=== PATIENT | male | born 1985 | race Asian ===

== ENCOUNTER 2017-08-25 14:05 | Emergency (ER) | payer SELFPAY ==
[~2017-08-25] VITALS: Ht 172.7 cm; Wt 69.8 kg
[2017-08-25 14:12] VITALS: TEMP 39.2; Ht 172.7 cm; Wt 69.8 kg
[2017-08-25] MEDS ORDERED: CLINDAMYCIN IV 900 MG in DEXTROSE 5% 100ML 100 ML IV ONE (14:30)
[2017-08-25] MEDS ORDERED: DEXAMETHASONE INJ 10 MG in SYRINGE 0 ML IV ONE (14:30)
[2017-08-25 14:58] LABS: BASO % 0.1 %; BASO ABS # 0.02 K/uL (0-0.2); HEMATOCRIT 40.4 % (42-52); IG# 0.08 K/uL (0.00-0.02); LYMPH % 4.6 %; LYMPH ABS # 1.01 K/uL (1.2-3.4); MEAN CELL VOLUME 93.1 fL (80-100); MEAN CORPUSCULAR HEMOGLOBIN 32.3 pg (25-34); MEAN CORPUSCULAR HGB CONC 34.7 g/dl (32-36); MEAN PLATELET VOLUME 9.2 fL (7.4-10.4); MONO % 4.7 %; MONO ABS # 1.04 K/uL (0.11-0.59); NEUT % 90.2 %; NEUT ABS # 19.94 K/uL (1.4-6.5); PLATELET COUNT 232 K/uL (130-400); RED CELL DISTRIBUTION WIDTH CV 11.7 % (11.5-14.5); RED CELL DISTRIBUTION WIDTH SD 39.7 fL (36.4-46.3); WHITE BLOOD COUNT 22.09 K/uL (4.8-10.8)
[2017-08-25] MEDS ORDERED: LIDO/EPINEPHRINE/SOD BICARB 20 ML VIAL ONE (14:59)
[2017-08-25 15:15] LABS: CREATININE 0.95 mg/dl (0.60-1.40); POTASSIUM 3.8 mmol/L (3.5-5.1)
[2017-08-25] MEDS ORDERED: HYDR-5688 PO (15:49)
[2017-08-25] MEDS ORDERED: AMOX875T PO (15:49)
--- NOTE | 2017-08-25 16:08 | OPERATIVE REPORT ---
DATE OF OPERATION: 08/25/2017 PREOPERATIVE DIAGNOSIS: Left peritonsillar abscess. POSTOPERATIVE DIAGNOSIS: Left peritonsillar abscess. PROCEDURE: Incision and drainage. SURGEON: Ada Tay MD ANESTHESIA: Local. COMPLICATIONS: None. BLOOD LOSS: Less than 10 mL. HISTORY OF PRESENT ILLNESS: This is a 32-year-old male with acute onset of sore throat last Bill, rapidly progressed to a febrile illness with sign of a left peritonsillar abscess. DESCRIPTION OF PROCEDURE: The patient was placed in the semi-sitting position. The throat was sprayed with Cetacaine and then injected with 1% Xylocaine 1:100,000 strength epinephrine. The needle aspiration with an 18 gauge needle was performed in the left peritonsillar abscess, obtaining 4 mL of pus. The abscess cavity was opened using #11 blade and abscess cavity was spread opened using the hemostat and the pharynx was suctioned clean. The patient tolerated the procedure well and will be discharged with Augmentin and Lortab elixir. I attest to the content of the Intraoperative Record and any orders documented therein. Any exception s are noted below.
[2017-08-25 16:09] VITALS: BP 142/92; PULSE 120; O2SAT 95
--- NOTE | 2017-08-25 16:20 | CONSULTATION REPORT ---
DATE OF CONSULTATION: 08/25/2017 DIAGNOSIS: Left peritonsillar abscess. HISTORY OF PRESENT ILLNESS: A 32-year-old male with acute onset of sore throat since last Saturday, became febrile today with dysphagia and odynophagia and drooling and was referred from the walk-in clinic for assessment for possible left peritonsillar abscess. PAST MEDICAL HISTORY: MEDICAL PROBLEMS: None. PREVIOUS SURGERIES: None. MEDICATIONS: Include Augmentin and [place]. SOCIAL HISTORY: Nonsmoker. REVIEW OF SYSTEMS: Otherwise, negative. PHYSICAL EXAMINATION: GENERAL: WNWD male, in pain and has dysphagia and has drooling and hot potato voice. HEAD: Normocephalic. EYES: Normal. EARS: Tympanic membranes intact. NOSE: Nasal passages patent. THROAT: Oropharynx shows left soft palate swelling with uvular swelling and uvular edema and uvular shift towards the right. NECK: Bilateral anterior adenopathy. Neck is otherwise supple. HEART: RRR. LUNGS: Clear. IMPRESSION: Left peritonsillar abscess. PLAN: For incision and drainage.
--- NOTE | 2017-08-25 16:36 | EMERGENCY ROOM VISIT NOTE ---
History First contact with patient: 14:19 Chief Complaint: SORETHROAT Stated Complaint: SORE THROAT,HEADACHE History of Present Illness The patient is a 32 year old male who presents to the Emergency Room with complaints of sore throat, change in his voice, and difficulty swallowing. Symptoms began night in the Saturday morning. Pain and swelling have become worse. He was seen at [facility] today and sent directly to the ED for ENT evaluation. His accompanies him today. She states's test was negative for strep. No prior history of similar episode. He has had fevers and sweats. No nausea or vomiting. No other cold symptoms. He does have a mild headache at this time. Review of Systems REVIEW OF SYSTEM: HEENT: No dizziness, visual problems, hearing loss, or tinnitus. There is difficulty swallowing. LYMPH: No prior adenopathy. PULMONARY: No cough, shortness of breath, sputum production or hemoptysis. CARDIOVASCULAR: No chest pain, palpitations, shortness of breath or peripheral edema. GASTROINTESTINAL: No diarrhea, constipation, nausea, vomiting, or abdominal pain. GENITOURINARY: No dysuria, frequency, urgency or nocturia. NEUROLOGIC: No weakness, muscle tenderness, epilepsy or history of neurological problems. MUSCULOSKELETAL: No history of joint tenderness/swelling. No history of arthritis or arthralgias. SKIN: No rashes or lesions. ENDOCRINE: No history of diabetes, thyroid disorders, or abnormal hair growth. Past Medical/Surgical History Previous surgeries: None Medical history: Benign Family History Unremarkable. Parents are living. Social History Smoking Status: Never Smoker Smokeless Tobacco Use: No Drug Use: none Marital Status: Housing Status: lives with family Occupation Status: employed Current/Historical Medications Scheduled Amoxicillin & Pot Clavulanate (Augmentin 875-125 mg), 1 TAB PO BID Scheduled PRN Hydrocodone/Acetaminophen 5MG/325MG (Hyrum 5MG/325MG), 1-2 TABLET PO Q6H PRN for Pain Allergies Coded Allergies: No Known Allergies (Unverified , 08/25/17) Physical Exam Vital Signs Date Time Temp Pulse Resp B/P (MAP) Pulse Ox O2 Delivery O2 Flow Rate FiO2 08/25/17 16:09 120 18 142/92 95 08/25/17 15:59 120 18 142/92 95 Room Air 08/25/17 15:56 Room Air 08/25/17 14:12 39.2 131 18 110/76 96 Room Air Physical Exam General: Well-developed, well-nourished, young male, in no acute distress. Obvious discomfort. Sitting on the bed. Neck is leaning forward. Skin: Warm and dry with good turgor. No rashes or lesions. No ecchymosis or erythema. The patient is not diaphoretic. No abrasions. HEENT: Normocephalic atraumatic. Eyes PERRLA, EOMI. No conjunctiva or scleral injection. Ears TMs intact bilaterally with good light reflexes. No erythema or bulging. No hemotympanum. Canals are patent. Nares patent bilaterally without turbinate enlargement. No significant drainage. No epistaxis. Oropharynx with erythema and exudate. Tonsils and soft palate are edematous, left greater than right. Uvula is also edematous. Uvula pushed slightly to the right, oral mucosa moist. No lesions present. Fair dentition. He is able to swallow his saliva, but this does generate pain. Lymphatics are palpated with anterior chain enlargement and tenderness. No posterior chain enlargement or tenderness. Heart: Heart RRR. No MGR. Peripheral pulses are 2+. Lungs: Lungs are clear to auscultation. No crackles rhonchi or wheezing. Good air movement. The patient is able to take a deep breath. Medical Decision & Procedures Laboratory Results 08/25/17 14:50 Red Blood Count 4.34, Mean Corpuscular Volume 93.1, Mean Corpuscular Hemoglobin 32.3, Mean Corpuscular Hemoglobin Concent 34.7, Mean Platelet Volume 9.2, Neutrophils (%) (Auto) 90.2, Lymphocytes (%) (Auto) 4.6, Monocytes (%) (Auto) 4.7, Eosinophils (%) (Auto) 0.0, Basophils (%) (Auto) 0.1, Neutrophils # (Auto) 19.94, Lymphocytes # (Auto) 1.01, Monocytes # (Auto) 1.04, Eosinophils # (Auto) 0.00, Basophils # (Auto) 0.02 08/25/17 14:50 Test 08/25/17 14:50 White Blood Count 22.09 K/uL (4.8-10.8) Red Blood Count 4.34 M/uL (4.7-6.1) Hemoglobin 14.0 g/dL (14.0-18.0) Hematocrit 40.4 % (42-52) Mean Corpuscular Volume 93.1 fL (80-100) Mean Corpuscular Hemoglobin 32.3 pg (25-34) Mean Corpuscular Hemoglobin Concent 34.7 g/dl (32-36) Platelet Count 232 K/uL (130-400) Mean Platelet Volume 9.2 fL (7.4-10.4) Neutrophils (%) (Auto) 90.2 % Lymphocytes (%) (Auto) 4.6 % Monocytes (%) (Auto) 4.7 % Eosinophils (%) (Auto) 0.0 % Basophils (%) (Auto) 0.1 % Neutrophils # (Auto) 19.94 K/uL (1.4-6.5) Lymphocytes # (Auto) 1.01 K/uL (1.2-3.4) Monocytes # (Auto) 1.04 K/uL (0.11-0.59) Eosinophils # (Auto) 0.00 K/uL (0-0.5) Basophils # (Auto) 0.02 K/uL (0-0.2) RDW Standard Deviation 39.7 fL (36.4-46.3) RDW Coefficient of Variation 11.7 % (11.5-14.5) Immature Granulocyte % (Auto) 0.4 % Immature Granulocyte # (Auto) 0.08 K/uL (0.00-0.02) Anion Gap 6.0 mmol/L (3-11) Est Creatinine Clear Calc Drug Dose 109.0 ml/min Estimated GFR () 123.1 Estimated GFR (Non- 106.2 BUN/Creatinine Ratio 10.3 (10-20) Calcium Level 9.0 mg/dl (8.5-10.1) CBC and PRP were obtained. Elevated white count at 22. PRP is unremarkable. Medications Administered Medications (Trade) Dose Ordered Sig/Niall Route Start Time Stop Time Status Last Admin Dose Admin Dexamethasone Sodium Phosphate 10 mg/Syringe 2.5 ml @ 1 mls/min NOW ONCE IV 08/25/17 14:30 08/25/17 14:32 DC 08/25/17 14:53 1 MLS/MIN Clindamycin Phosphate 900 mg/ Dextrose 106 ml @ 100 mls/hr ONE ONCE IV 08/25/17 14:30 08/25/17 15:33 DC 08/25/17 14:53 100 MLS/HR Decadron 10 mg IV, clindamycin 900 mg IV ED Course Patient was educated regarding today's findings. Conservative care measures were discussed. IV was established. Labs were obtained. He was given Decadron 10 mg IV and clindamycin 900 mg IV. I did speak with Dr. Tay. He did come to the department to evaluate the patient. Please see his dictation for final management. I&D was completed. Patient was discharged with scripts for Augmentin 875 mg twice daily 10 days and Hyrum 5 mg as needed for pain. Patient remained stable while he was in the ED. Medical Decision Possibility of strep pharyngitis, viral pharyngitis, peritonsillar abscess, tonsillitis, mono, and uvulitis were considered. [place] Drug Monitoring Program Search Results: no issues identified Impression Primary Impression: Peritonsillar abscess Departure Information Prescriptions Hydrocodone/Acetaminophen 5MG/325MG ([place]rum 5MG/325MG) Tab 1-2 TABLET PO Q6H Y for Pain, #12 TAB For Initial Treatment Prov: John Castro,P.A. 08/25/17 Amoxicillin & Pot Clavulanate (Augmentin 875-125 mg) 1 Tab Tab 1 TAB PO BID, #20 TAB Prov: John Castro,P.A. 08/25/17 Referrals No Doctor, Assigned (PCP) Patient Instructions [facility]
--- NOTE | 2017-08-26 11:41 | Pharmacy Progress Note ---
ED Pharmacist Culture FollowUp Date of Service: Aug 26, 2017. Peritonsillar abscess cx is growing GAS. Patient presented with sore throat, difficulty swallowing, drooling, fever and diaphoresis Patient dx with peritonsillar abscess. Dr Tay consulted. I + D performed and pt was discharged w/ Rx for Augmentin 875mg PO BID x 10 days. This would be appropriate abx therapy for GAS. No further action required.
== END 2017-08-25 16:11 | disposition home or self-care (01) ==
LOC: C.EDB 14:08 → C.EDC 16:11
DX: J36 Peritonsillar abscess (principal)